=== PATIENT | male | born 1965 ===

== ENCOUNTER 2018-06-23 16:42 | Emergency (ER) | payer OTHER ==
[2018-06-23 16:42] VITALS: BMI 32.2
[2018-06-23 16:47] VITALS: BP 179/98; PULSE 100; RESP 18; TEMP 98.7; O2SAT 97
[2018-06-23] MEDS ORDERED: Tdap Vaccine 0.5 ml Vial (10-64 yrs) IM ONE ×2 (17:01→18:01)
--- NOTE | 2018-06-23 17:44 | CT ---
Date of service: 06/23/2018 PROCEDURE: CT HEAD WITHOUT CONTRAST. HISTORY: s/p head injury 1 hour ago COMPARISON: None available. TECHNIQUE: Axial computed tomography images were obtained through the head/brain without intravenous contrast. Radiation dose: Total exam DLP = 1184.16 mGy-cm. This CT exam was performed using one or more of the following dose reduction techniques: Automated exposure control, adjustment of the mA and/or kV according to patient size, and/or use of iterative reconstruction technique. FINDINGS: HEMORRHAGE: No intracranial hemorrhage. BRAIN: No mass effect or edema. Lester-white matter differentiation appears intact. Please note that MRI with diffusion imaging is more sensitive in the detection of acute ischemic event. VENTRICLES: No hydrocephalus. CALVARIUM: Unremarkable. PARANASAL SINUSES: Unremarkable as visualized. No significant inflammatory changes. MASTOID AIR CELLS: Unremarkable as visualized. No inflammatory changes. OTHER FINDINGS: Large amount of subcutaneous air at the level of the right ear. IMPRESSION: No acute intracranial pathology identified. Large amount of subcutaneous air at the level of the right ear. Correlate with physical exam and direct visualization for possibility of laceration.
--- NOTE | 2018-06-23 18:08 | C.PDOC ---
History Of Present Illness Gomez of truck fell on his head while working on it. Time Seen by Provider: 06/23/18 16:53 Chief Complaint (Nursing): Trauma History Per: Patient Injury Occurred (Timing): Just Before Arrival Patient States: Struck With Object Severity: Moderate Loss Of Consciousness: Unsure Additional History Per: Prior Records Past Medical History Reviewed: Historical Data, Nursing Documentation, Vital Signs Vital Signs: Last Vital Signs Temp 98.7 F 06/23/18 16:44 Pulse 100 H 06/23/18 16:44 Resp 18 06/23/18 16:44 BP 179/98 H 06/23/18 16:44 Pulse Ox 97 06/23/18 16:44 - Medical History PMH: No Chronic Diseases Family History: States: Unknown Family Hx - Social History Hx Alcohol Use: Yes Hx Substance Use: No - Immunization History Hx Tetanus Toxoid Vaccination: No Review Of Systems Except As Marked, All Systems Reviewed And Found Negative. Constitutional: Negative for: Fever Eyes: Negative for: Pain, Vision Change ENT: Positive for: Ear Pain (right) Cardiovascular: Negative for: Chest Pain Respiratory: Negative for: Shortness of Breath Gastrointestinal: Negative for: Nausea, Vomiting, Abdominal Pain Musculoskeletal: Negative for: Neck Pain, Shoulder Pain, Arm Pain, Back Pain Neurological: Negative for: Weakness, Numbness, Change in Speech, Seizures, Altered Mental Status Physical Exam - Physical Exam Appears: Non-toxic, No Acute Distress Skin: Normal Color, Warm, Dry Head: Swelling (Scalp hematoma) Eye(s): bilateral: Normal Inspection Ear(s): Left: Normal, Right: Other (Deep abrasion with contused tissu inside pinna. Ear canal and TM normal.) Nose: No Epistaxis, No Deformity, No Tenderness, No Septal Hematoma Lips: Normal Appearing Neck: Normal ROM, No Midline Cervical Tenderness, No Step Off Deformity, Supple Chest: Symmetrical, No Deformity Cardiovascular: Rhythm Regular Respiratory: Normal Breath Sounds, No Accessory Muscle Use Gastrointestinal/Abdominal: Soft, No Tenderness Back: No Vertebral Tenderness Extremity: Normal ROM, No Deformity Neurological/Psych: Oriented x3, Normal Speech, Normal Cognition, Normal Cranial Nerves, Normal Motor, Normal Sensation ED Course And Treatment O2 Sat by Pulse Oximetry: 97 Pulse Ox Interpretation: Normal - Radiology Nexus Criteria: Negative - CT Scan/US CT head Other Rad Studies (CT/US): Read By Radiologist, Radiology Report Reviewed CT/US Interpretation: IMPRESSION: No acute intracranial pathology identified. Laceration - Laceration Repair Right Ear Wound Length (In cm): 0.5 Description Of Wound: Irregular, Contused Tissue Wound Cleansed With: Sterile Saline Wound Examination: Irrigated With Saline, No FB With Wound Exploration Wound Closure: Skin Glue Disposition Counseled Patient/Family Regarding: Studies Performed, Diagnosis, Need For Followup, Rx Given - Disposition Referrals: [facility] at [facility] [Outside] Glen Womack MD [Staff Provider] - Disposition: HOME/ ROUTINE Disposition Time: 18:11 Condition: IMPROVED Additional Instructions: Follow up with an ENT specialist this week for further evaluation and treatment. Return to the ER if you develop fever, redness, swelling, pus drainage, weakness, numbness, vomiting, worsening of symptoms or if you have any other concerns. Prescriptions: Cephalexin [cephalexin] 500 mg PO TID #15 cap Instructions: Closed Head Injury (DC), Laceration Repair With Glue (DC) Forms: [employer] (Latvian) Print Language: NORWEGIAN - Clinical Impression Clinical Impression: Head injury, Ear wound
== END 2018-06-23 18:35 | disposition home or self-care (01) ==
LOC: C.ER 16:42
DX: S01.311A Laceration without foreign body of right ear, initial encounter (principal); S00.03XA Contusion of scalp, initial encounter; W22.8XXA Striking against or struck by other objects, initial encounter

== ENCOUNTER 2018-09-11 10:35 | Emergency (ER) | payer OTHER ==
[2018-09-11 10:36] VITALS: BMI 32.2
[2018-09-11 10:40] VITALS: BP 172/92; PULSE 72; RESP 16; TEMP 98
[2018-09-11] MEDS ORDERED: Naproxen 550 mg Tab PO STA (11:22)
[2018-09-11] MEDS ORDERED: Naproxen 550 mg Tab PO ONE (11:27)
--- NOTE | 2018-09-11 11:49 | RAD ---
Date of service: 09/11/2018 PROCEDURE: Left Wrist Radiographs. HISTORY: pain COMPARISON: None. TECHNIQUE: 4 views obtained. FINDINGS: BONES: Bone alignment and mineralization are normal. There is no acute displaced fracture or bone destruction. JOINTS: Normal. No dislocation. SOFT TISSUES: Normal. OTHER FINDINGS: None. IMPRESSION: No acute displaced fracture or dislocation.
--- NOTE | 2018-09-11 11:56 | C.PDOC ---
History Of Present Illness 52 year old male presents to the ED complaining of right ear pain and bleeding. Pt reports that two months ago at work a truck orantes hit his head and a screw cut the middle of his right ear. We has evaluated in the ED, cut was glued and area improved. In the last week, he noted blood ozzing from the wound. Notes pain persists. Patient has not followed up since last ED visit two months ago. Denies changes in hearing , blurry vision, nausea, vomiting, headache, discharge form ear canal or any other symptoms. Patient also complains of left wrist pain for one month. 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 Denies any numbness, weakness, tingling, or any trauma or injuries. Time Seen by Provider: 09/11/18 10:44 Chief Complaint (Nursing): ENT Problem History Per: Patient History/Exam Limitations: None Onset/Duration Of Symptoms: Days Current Symptoms Are (Timing): Still Present Quality (Ear): Pain W/Touch, Discharge Past Medical History Reviewed: Historical Data, Nursing Documentation, Vital Signs Vital Signs: Last Vital Signs Temp 98 F 09/11/18 10:38 Pulse 72 09/11/18 10:38 Resp 16 09/11/18 10:38 BP 172/92 H 09/11/18 10:38 Pulse Ox 72 L 09/11/18 10:38 - Medical History PMH: No Chronic Diseases Surgical History: No Surg Hx Family History: States: No Known Family Hx - Social History Hx Alcohol Use: Yes Hx Substance Use: No - Immunization History Hx Tetanus Toxoid Vaccination: No Review Of Systems Eyes: Negative for: Vision Change ENT: Positive for: Ear Pain (left), Ear Discharge. Negative for: Other (decreased hearing ) Gastrointestinal: Negative for: Nausea, Vomiting Musculoskeletal: Positive for: Other (left wrist pain) Neurological: Negative for: Weakness, Numbness Physical Exam - Physical Exam Appears: Non-toxic, No Acute Distress Skin: Warm, Dry, No Rash Head: Normacephalic Eye(s): bilateral: Normal Inspection, PERRL, EOMI Ear(s): Left: Normal, Right: Other (ecchymosis to yasmine, healing abrasion, no erythema, no swelling, no discharge, no bleeding. TM and ear canal are normal. Tendernes around the ear. No swelling or erythema or increased warmth. ) Nose: Normal Oral Mucosa: Moist Throat: Normal, No Erythema, No Exudate Neck: Normal ROM, Supple Chest: Symmetrical Cardiovascular: Rhythm Regular Respiratory: No Accessory Muscle Use, No Rales, No Rhonchi, No Wheezing, Other (speaking in full sentences, CTA) Neurological/Psych: Oriented x3, Normal Speech Gait: Steady ED Course And Treatment O2 Sat by Pulse Oximetry: 97 Pulse Ox Interpretation: Normal - Other Rad Left Wrist XR X-Ray: Viewed By Me, Read By Radiologist Interpretation: Accession No. : [id number]. Patient Name / ID : DIANNE Munroe / [id number]. Exam Date : 09/11/2018 11:27:25 ( Approved ). Study Comment : Sex / Age : M / 52Y. Creator : Babs Borrego MD. Dictator : Babs Borrego MD. Electrician Journeyman Wireman : Shrimp Cleaner : Babs Borrego MD. Approver2 : Report Date : 09/11/2018 11:45:27. My Comment : . Date of service: 09/11/2018. PROCEDURE: Left Wrist Radiographs. . HISTORY: pain. COMPARISON: None. TECHNIQUE: 4 views obtained. FINDINGS: BONES: Bone alignment and mineralization are normal. There is no acute displaced fracture or bone destruction. JOINTS: Normal. No dislocation. SOFT TISSUES: Normal. OTHER FINDINGS: None. IMPRESSION: No acute displaced fracture or dislocation. Mastoid CT X-Ray: Read By Radiologist Interpretation: IMPRESSION: Unremarkable non contrast enhanced CT of the temporal bones. Progress Note: Left wrist X-ray and CT of mastoids ordered. Patient treated with Naproxen 550mg PO. Pt notes pain improved. Denies headache, change in hearing. Afebrile. No discharge or bleeding from the ear. Ear has some ecchymosis, bleeding was from previous laceration which likely had a blot collection under i t. Currently , no swelling or hematoma. No signs of infection. Instructed to follow up with clinic/ENT in 1-2 days for futher evaluation. Disposition - Disposition Referrals: [facility] at [facility] [Outside] Glen Womack MD [Staff Provider] - Disposition: HOME/ ROUTINE Disposition Time: 12:49 Condition: STABLE Additional Instructions: Alwanda un seguimiento con cevallos mdico de cabecera en 1-2 wagner. Regresar a Urgencias si los sntomas persisten o empeoran. 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 - Scribe Statement The provider has reviewed the documentation as recorded by the Scribalexia Perkins All medical record entries made by the Scribe were at my direction and personally dictated by me. I have reviewed the chart and agree that the record accurately reflects my personal performance of the history, physical exam, medical decision making, and the department course for this patient. I have also personally directed, reviewed, and agree with the discharge instructions and disposition.
--- NOTE | 2018-09-11 12:45 | CT ---
Date of service: 09/11/2018 PROCEDURE: CT OF THE TEMPORAL BONES WITHOUT CONTRAST HISTORY: right sided pain COMPARISON: None available. TECHNIQUE: High resolution axial images of the temporal bones were obtained. Coronal and sagittal reformats were generated. Radiation dose: Total exam DLP = 661.71 mGy-cm. This CT exam was performed using one or more of the following dose reduction techniques: Automated exposure control, adjustment of the mA and/or kV according to patient size, and/or use of iterative reconstruction technique. FINDINGS: RIGHT TEMPORAL BONE: RIGHT MIDDLE EAR: Normal. RIGHT INNER EAR: Cochlea: Normal. Semicircular canals: Normal. RIGHT MASTOID AIR CELLS: Normal. RIGHT INTERNAL AUDITORY CANAL: Normal. RIGHT EXTERNAL AUDITORY CANAL: Normal. RIGHT VESTIBULAR AND COCHLEAR AQUEDUCT: Normal. OTHER FINDINGS: None. LEFT TEMPORAL BONE: LEFT MIDDLE EAR: Normal. LEFT INNER EAR: Cochlea: Normal. Semicircular canals: Normal. LEFT MASTOID AIR CELLS: Normal. LEFT INTERNAL AUDITORY CANAL: Normal. LEFT EXTERNAL AUDITORY CANAL: Normal. LEFT VESTIBULAR AND COCHLEAR AQUEDUCTS: Normal. OTHER FINDINGS: There is mild mucosal thickening in the paranasal sinuses and a right middle turbinate yasmine bullosa. IMPRESSION: Unremarkable non contrast enhanced CT of the temporal bones.
[2018-09-11 12:54] VITALS: O2SAT 97
== END 2018-09-11 13:17 | disposition home or self-care (01) ==
LOC: C.ER 10:35
DX: S00.431D Contusion of right ear, subsequent encounter (principal); W22.8XXD Striking against or struck by other objects, subsequent encounter